=== PATIENT | female | born 1995 | race Caucasian/White ===

== ENCOUNTER 2016-11-28 14:37 | Emergency (ER) | payer MEDICAID ==
[2016-11-28] MEDS ORDERED: hydrOXYzine 25 MG TAB ONE (15:43)
== END 2016-11-28 16:40 | disposition home or self-care (01) ==
LOC: ER 15:25
DX: R45.851 Suicidal ideations (principal); F41.1 Generalized anxiety disorder; F33.1 Major depressive disorder, recurrent, moderate; E10.9 Type 1 diabetes mellitus without complications; Z79.4 Long term (current) use of insulin
CPT/HCPCS: 36415; 80053; 80307; 80320; 80329; 81003; 85025